=== PATIENT | female | born 1985 | race Two or more races ===

== ENCOUNTER 2017-10-10 19:02 | Emergency (ER) | payer OTHER | END 2017-10-10 20:05 | disposition home or self-care (01) | LOC: ER 19:02 | DX: J02.9 Acute pharyngitis, unspecified (principal); H92.09 Otalgia, unspecified ear | CPT/HCPCS: 99283 ==

== ENCOUNTER 2018-02-02 22:31 | Emergency (ER) | payer OTHER ==
[~2018-02-02] VITALS: Ht 157.5 cm; Wt 104.3 kg
[~2018-02-02 22:31] MED LIST: AMOX1TAB61 PO; PRED-220 PO
[2018-02-02 22:55] VITALS: BP 155/97
--- NOTE | 2018-02-03 00:58 | PHYS DOC ---
Past Medical History Past Medical History: No Pertinent History Past Surgical History: Additional Past Surgical Histo: C-SECTIONS Alcohol Use: Rarely Drug Use: None Adult General Chief Complaint Chief Complaint: LOWER EXT PAIN HPI HPI 32-year-old female presents to ER for complaints of left lower extremity pain and swelling. Patient reports on she has history of Aragon's palsy and on Monday had episode which caused her to fall forward striking her left knee on a tree stump. Patient reports she had some discomfort at that time the pain was tolerable so she was not evaluated. Patient reports yesterday she drove back from [place] on and woke Monday morning with increased pain and tingling in left lower extremity along with swelling. Patient reports she feels she has more bruising extending down her left lower leg into her ankle. Patient denies any ankle or foot injury. Patient denies striking her head or having any head, neck, or back pain. Patient currently rates pain at 6 out of 10 denying any eazk-imf-oomowed medications. Patient denies being on control, being daily smoker, or having past history of blood clots or PEs. LMP ended 01/20/18. Patient was offered dose of ibuprofen during an initial exam- she is preferring no medications. Review of Systems Review of Systems Constitutional: Denies fever or chills [] Respiratory: Denies cough or shortness of breath [] Cardiovascular: Denies chest pain or palpitations GI: Denies abdominal pain, nausea, vomiting, bloody stools or diarrhea [] : Denies dysuria or hematuria [] Musculoskeletal: Denies back pain or joint pain [] Integument: Denies rash or skin lesions. Reports bruising to left lower leg standing in to left ankle-swelling to the left lower extremity Neurologic: Denies headache, focal weakness or sensory changes. Reports numbness and tingling in left lower extremity. Denies inability to ambulate All other systems were reviewed and found to be within normal limits, except as documented in this note. Allergies Allergies Allergies Coded Allergies Type Severity Reaction Last Updated Verified No Known Drug Allergies 10/10/17 No Physical Exam Physical Exam Constitutional: Well developed, well nourished, no acute distress, non-toxic appearance. [] HENT: Normocephalic, atraumatic, bilateral ears normal, oropharynx moist, nose normal. [] Eyes: PERRLA, conjunctiva normal, no discharge. [] Neck: Normal range of motion, no tenderness, supple, no stridor. [] Cardiovascular:Heart rate regular rhythm, no murmur [] Lungs & Thorax: Bilateral breath sounds clear to auscultation area respirations equal and nonlabored Abdomen: Bowel sounds normal, soft, no tenderness Skin: Warm, dry, no erythema, no rash. [] Back: No tenderness, no CVA tenderness. [] Extremities: Pelvis stable and nontender. Right lower extremity assessment normal limits neuro and vascular intact. Lt anterior distal thigh tenderness on palp. just above lt patella. Lt patella is nontender with no palp. deformity. Abrasion just distal to patella- no erythema/drainage. Pt has swelling from knee to lt foot with ecchymosis extending from lt lower mid chaparro to lt ankle with more ecchymosis medial malleolus. Pt is able to perform ROM of lt LE joints but does report pain with ROM of lt knee or palp. of lt chaparro. Neurologic: Alert and oriented X 3, normal motor function, normal sensory function, no focal deficits noted.Steady gait Psychologic: Affect normal, judgement normal, mood normal. [] Current Patient Data Vital Signs Vital Signs Date Time Temp Pulse Resp B/P (MAP) Pulse Ox O2 Delivery O2 Flow Rate FiO2 02/02/18 22:55 98.4 98 16 155/97 (116) 98 Room Air 98.4 EKG EKG [] Radiology/Procedures Radiology/Procedures INDICATION: Left leg injury with swelling and bruising COMPARISON: None. TECHNIQUE: Grayscale, color and doppler ultrasound images were obtained of the left lower extremity venous vasculature. LEFT: No thrombus identified in the common femoral vein, femoral vein, popliteal vein or visualized calf veins. Edema of soft tissues IMPRESSION: 1. No thrombus identified in deep venous system of the left lower extremity. Electronically signed by: Shaun Rodriguez MD (02/03/2018 1:02 AM) [facility] DICTATED and SIGNED BY: SHAUN RODRIGUEZ MD DATE: 02/03/18 010 Course & Med Decision Making Course & Med Decision Making Pertinent Imaging studies reviewed. (See chart for details) 0104: Discussed pt's case with Dr. Baer who viewed pt's xrays with no acute findings for fx/dislocation. Discussed neg. US of lt LE. Will wrap ankle/lt lower leg with keyona wrap for drive home. Discussed taking wrap off and elevating lt LE. Discussed use of OTC tylenol and/or Ibuprofen for pain. Education provided on s&s to return to ER for and discharge instructions were discussed. Pt again offered pain med and preferred no med. Pt remains neuro/vascular intact in bilat. LEs with no increase in swelling. She has had steady unassisted gait while in ER. Dragon Disclaimer Dragon Disclaimer This electronic medical record was generated, in whole or in part, using a voice recognition dictation system. Departure Departure Impression: Primary Impression: Leg injury Additional Impressions: Traumatic ecchymosis of left lower leg Abrasion Swelling of left lower extremity Disposition: HOME, SELF-CARE Condition: STABLE Referrals: NO PCP (PCP) MORENO KATHLEEN MD If symptoms persist or worsen follow-up with orthopedic doctor Patient Instructions: Abrasions, Contusion, Edema, Knee Pain Additional Instructions: You can wear keyona wrap to help with swelling in left lower extremity- take the wrap off several times a day to allow circulation and monitoring of skin. Ibuprofen and/or tylenol as needed for pain as directed on container. Problem Qualifiers CARLY CALDERON APRN Feb 03, 2018 00:58
--- NOTE | 2018-02-03 01:05 | RAD ---
INDICATION: Left leg injury with swelling and bruising COMPARISON: None. TECHNIQUE: Grayscale, color and doppler ultrasound images were obtained of the left lower extremity venous vasculature. LEFT: No thrombus identified in the common femoral vein, femoral vein, popliteal vein or visualized calf veins. Edema of soft tissues IMPRESSION: 1. No thrombus identified in deep venous system of the left lower extremity. Electronically signed by: Arnulfo Persaud MD (02/03/2018 1:02 AM) [facility]
--- NOTE | 2018-02-03 07:40 | RAD ---
EXAM: Left tibia and fibula, 2 views; left knee, 3 views. HISTORY: Pain. COMPARISON: None. FINDINGS: Frontal and lateral views of the left tibia and fibula and frontal, lateral and oblique views of the left knee are obtained. There is no acute fracture, dislocation or subluxation. There is a small osseous excrescence along the inferior medial malleolus, likely degenerative or the sequela of remote injury. There is a small plantar spur. There is suspected medial ankle soft tissue swelling. There is no knee effusion. IMPRESSION: No acute osseous finding. Electronically signed by: Faith Fitch MD (02/03/2018 7:37 AM) [facility]
== END 2018-02-03 01:29 | disposition home or self-care (01) ==
LOC: ER 22:31
DX: S80.12XA Contusion of left lower leg, initial encounter (principal); W18.09XA Striking against other object with subsequent fall, initial encounter; Y93.89 Activity, other specified; Y92.89 Other specified places as the place of occurrence of the external cause; Y99.8 Other external cause status
CPT/HCPCS: 73562; 73590; 93971; 99284-25

== ENCOUNTER 2018-11-18 20:26 | Emergency (ER) | payer MEDICAID, OTHER ==
[~2018-11-18] VITALS: Ht 157.5 cm; Wt 104.3 kg
[2018-11-18 20:41] LABS: BILIRUBIN,URINE SMALL (NEG); CLARITY,URINE CLOUDY; COLOR,URINE AMBER; NITRITE,URINE NEGATIVE (NEG); PROTEIN,URINE 100 mg/dL (NEG-TRACE); UROBILINOGEN,URINE 0.2 mg/dL (0.2 mg/dL)
--- NOTE | 2018-11-18 20:44 | PHYS DOC ---
Past Medical History Past Medical History: No Pertinent History Past Surgical History: Additional Past Surgical Histo: C-SECTIONS Alcohol Use: Rarely Drug Use: None Adult General Chief Complaint Chief Complaint: ABDOMINAL PAIN HPI HPI Patient is a 33 year old female with no significant medical history who presents to the ED today complaining of a sharp intermittent bilateral upper abd ominal pain that began yesterday with nausea and vomiting. Patient denies anything exacerbating or relieving the pain. Denies any diarrhea. Review of Systems Review of Systems Constitutional: Denies fever or chills [] Eyes: Denies change in visual acuity, redness, or eye pain [] HENT: Denies nasal congestion or sore throat [] Respiratory: Denies cough or shortness of breath [] Cardiovascular: No additional information not addressed in HPI [] GI: Reports bilateral upper abdominal pain with nausea and vomiting, denies bloody stools or diarrhea [] : Denies dysuria or hematuria [] Musculoskeletal: Denies back pain or joint pain [] Integument: Denies rash or skin lesions [] Neurologic: Denies headache, focal weakness or sensory changes [] All other systems were reviewed and found to be within normal limits, except as documented in this note. Current Medications Current Medications Current Medications Medications (Trade) Dose Ordered Sig/Wilder Start Time Stop Time Status Last Admin Dose Admin Ceftriaxone Sodium (Rocephin) 1 gm 1X ONCE 11/18/18 22:30 11/18/18 22:31 Famotidine (Pepcid Vial) 20 mg 1X ONCE 11/18/18 20:45 11/18/18 20:46 DC 11/18/18 20:59 20 MG Fentanyl Citrate (Fentanyl 2ml Vial) 50 mcg 1X ONCE 11/18/18 21:30 11/18/18 21:31 DC 11/18/18 21:35 50 MCG Ketorolac Tromethamine (Toradol 30mg Vial) 30 mg 1X ONCE 11/18/18 22:30 11/18/18 22:31 Ondansetron HCl (Zofran) 4 mg 1X ONCE 11/18/18 20:45 11/18/18 20:46 DC 11/18/18 20:56 4 MG Potassium Chloride (Klor-Con) 40 meq 1X ONCE 11/18/18 22:00 11/18/18 22:01 DC 11/18/18 21:42 40 MEQ Sodium Chloride 1,000 ml @ 1,000 mls/hr 1X ONCE 11/18/18 20:45 11/18/18 21:44 DC 11/18/18 21:02 1,000 MLS/HR Allergies Allergies Allergies Coded Allergies Type Severity Reaction Last Updated Verified No Known Drug Allergies 10/10/17 No Physical Exam Physical Exam Constitutional: Well developed, well nourished, no acute distress, non-toxic appearance. [] HENT: Normocephalic, atraumatic, bilateral external ears normal, oropharynx moist, no oral exudates, nose normal. [] Eyes: PERRLA, EOMI, conjunctiva normal, no discharge. [] Neck: Normal range of motion, no tenderness, supple, no stridor. [] Cardiovascular:Heart rate regular rhythm, no murmur [] Lungs & Thorax: Bilateral breath sounds clear to auscultation [] Abdomen: Bowel sounds normal, soft, diffuse tenderness to bilateral upper abdomen, no point tenderness the right upper or right lower quadrant, negative Alejandre sign, negative psoas sign, negative Rovsing sign, no guarding, no rebound pain or tenderness no masses, no pulsatile masses. [] Skin: Warm, dry, no erythema, no rash. [] Back: No tenderness, no CVA tenderness. [] Extremities: No tenderness, no cyanosis, no clubbing, ROM intact, no edema. [] Neurologic: Alert and oriented X 3, normal motor function, normal sensory function, no focal deficits noted. [] Psychologic: Affect normal, judgement normal, mood normal. [] Current Patient Data Vital Signs Vital Signs Date Time Temp Pulse Resp B/P (MAP) Pulse Ox O2 Delivery O2 Flow Rate FiO2 11/18/18 21:35 20 Room Air 11/18/18 20:40 99.1 110 152/87 (108) 96 99.1 Lab Values Laboratory Tests Test 11/18/18 20:33 11/18/18 20:37 11/18/18 20:45 Urine Collection Type Unknown Urine Color [place] Urine Clarity Cloudy Urine pH 5.0 Urine Specific [place] >=1.030 Urine Protein 100 mg/dL (NEG-TRACE) Urine Glucose (UA) 500 mg/dL (NEG) Urine Ketones (Stick) 15 mg/dL (NEG) Urine Blood Large (NEG) Urine Nitrite Negative (NEG) Urine Bilirubin Small (NEG) Urine Urobilinogen Dipstick 0.2 mg/dL (0.2 mg/dL) Urine Leukocyte Esterase Small (NEG) Urine RBC Tntc /HPF (0-2) Urine WBC 11-20 /HPF (0-4) Urine Squamous Epithelial Cells Mod /LPF Urine Bacteria Few /HPF (0-FEW) Urine Mucus Marked /LPF POC Urine HCG, Qualitative Hcg negative (Negative) White Blood Count 15.6 x10^3/uL (4.0-11.0) H Red Blood Count 4.82 x10^6/uL (3.50-5.40) Hemoglobin 13.8 g/dL (12.0-15.5) Hematocrit 40.3 % (36.0-47.0) Mean Corpuscular Volume 84 fL (79-100) Mean Corpuscular Hemoglobin 29 pg (25-35) Mean Corpuscular Hemoglobin Concent 34 g/dL (31-37) Red Cell Distribution Width 14.1 % (11.5-14.5) Platelet Count 203 x10^3/uL (140-400) Neutrophils (%) (Auto) 84 % (31-73) H Lymphocytes (%) (Auto) 11 % (24-48) L Monocytes (%) (Auto) 5 % (0-9) Eosinophils (%) (Auto) 0 % (0-3) Basophils (%) (Auto) 0 % (0-3) Neutrophils # (Auto) 13.1 x10^3uL (1.8-7.7) H Lymphocytes # (Auto) 1.7 x10^3/uL (1.0-4.8) Monocytes # (Auto) 0.7 x10^3/uL (0.0-1.1) Eosinophils # (Auto) 0.0 x10^3/uL (0.0-0.7) Basophils # (Auto) 0.1 x10^3/uL (0.0-0.2) Segmented Neutrophils % 53 % (35-66) Band Neutrophils % 34 % (0-9) H Lymphocytes % 8 % (24-48) L Monocytes % 3 % (0-10) Basophils % 1 % (0-3) Metamyelocytes % 1 % (0-0) H Platelet Estimate Adequate (ADEQUATE) Sodium Level 133 mmol/L (136-145) L Potassium Level 3.2 mmol/L (3.5-5.1) L Chloride Level 95 mmol/L (98-107) L Carbon Dioxide Level 24 mmol/L (21-32) Anion Gap 14 (6-14) Blood Urea Nitrogen 9 mg/dL (7-20) Creatinine 0.9 mg/dL (0.6-1.0) Estimated GFR (Cockcroft-Gault) 71.7 BUN/Creatinine Ratio 10 (6-20) Glucose Level 238 mg/dL (70-99) H Calcium Level 9.0 mg/dL (8.5-10.1) Total Bilirubin 0.9 mg/dL (0.2-1.0) Aspartate Amino Transferase (AST) 29 U/L (15-37) Alanine Aminotransferase (ALT) 45 U/L (14-59) Alkaline Phosphatase 104 U/L (46-116) Total Protein 7.9 g/dL (6.4-8.2) Albumin 3.8 g/dL (3.4-5.0) Albumin/Globulin Ratio 0.9 (1.0-1.7) L Lipase 94 U/L (73-393) Urine Opiates Screen Neg (NEG) Urine Methadone Screen Neg (NEG) Urine Barbiturates Neg (NEG) Urine Phencyclidine Screen Neg (NEG) Urine Amphetamine/Methamphetamine Neg (NEG) Urine Benzodiazepines Screen Neg (NEG) Urine Cocaine Screen Neg (NEG) Urine Cannabinoids Screen Neg (NEG) Ethyl Alcohol Level < 10 mg/dL (0-10) Urine Ethyl Alcohol Neg (NEG) Laboratory Tests 11/18/18 20:45 Laboratory Tests 11/18/18 20:45 EKG EKG [] Radiology/Procedures Radiology/Procedures []PROCEDURE: ABDOMEN COMPLETE EXAM: Abdomen sonogram. HISTORY: Pain. TECHNIQUE: Sonographic imaging of the abdomen was performed. COMPARISON: None. FINDINGS: The liver is enlarged. There is hepatic steatosis. No focal hepatic lesion is seen. There is cholelithiasis. The common bile duct is normal in caliber. The gallbladder wall is normal in thickness. The kidneys are unremarkable. The spleen is normal in size. The pancreas is obscured due to bowel gas. The aorta and inferior vena cava are unremarkable. IMPRESSION: 1. Hepatomegaly and hepatic steatosis. 2. Cholelithiasis. 3. Obscured pancreas due to bowel gas. Electronically signed by: Faith Soto MD (11/18/2018 9:27 PM) [facility] DICTATED and SIGNED BY: FAITH SOTO MD DATE: 11/18/182126 Course & Med Decision Making Course & Med Decision Making Pertinent Labs and Imaging studies reviewed. (See chart for details) This is a 33-year-old female patient presented to the ED today with complaints of bilateral upper abdominal pain with nausea vomiting that began yesterday. Urine analysis is noted for UTI, WBC 15.6 with a left shift and bandemia. CMP with potassium of 3.2, patient was given oral potassium replacement, sodium 132, patient was given IV fluids, blood glucose 238, anion gap is normal, patient has no history of diabetes-she states she's been unable to eat if this is a fasting glucose she has DMII. Patient instructed to follow-up with the primary care doctor for diabetes. We talked about diet and exercise. Abdominal ultrasound was noted for cholelithiasis, no cholecystitis. Patient was given Rocephin IV for UTI in the ED. I offered admission, she declined. She states her pain is currently well controlled. She was discharged with Cephalexin. She'll follow-up with Gen. surgery as well as primary care doctor. Dragon Disclaimer Dragon Disclaimer This electronic medical record was generated, in whole or in part, using a voice recognition dictation system. Departure Departure Impression: Primary Impression: Cholelithiasis Additional Impressions: Urinary tract infection Nausea and vomiting Disposition: 01 HOME, SELF-CARE Condition: STABLE Referrals: NO PCP (PCP) RAISA SANCHEZ MD follow up in 1 week Patient Instructions: Cholelithiasis, [id number], Urinary Tract Infection Additional Instructions: You were evaluated in the emergency room and noted to have gallstones, you also have urinary tract infection. Please take the prescribed medications as ordered, ensure you complete your antibiotics. Take the prescribed pain medicine and nausea medicine as needed. Your blood glucose was high in the emergency room. We recommend you follow-up with the primary care doctor from the list provided you likely have diabetes. Try to exercise, lose weight, avoid eating fatty greasy foods, avoid foods with sugars, and added salts. Scripts Hydrocodone/Apap 5-325 (NORCO 5-325 TABLET) 1 Each Tablet 1 TAB PO Q6HRS, #20 TAB Prov: MUTUNGA,ASHLYN KELLIE 11/18/18 Cephalexin (CEPHALEXIN) 500 Mg Tablet 1 TAB PO BID, #14 TAB Prov: ASHLYN CHAPARRO KELLIE 11/18/18 Ondansetron Hcl (ZOFRAN) 4 Mg Tablet 1 TAB PO Q6HRS, #20 TAB Prov: ASHLYN CHAPARRO [employer] 11/18/18 Problem Qualifiers Primary Impression: Cholelithiasis Cholelithiasis location: gallbladder Cholecystitis presence: without cholecystitis Biliary obstruction: without biliary obstruction Qualified Codes: K80.20 - Calculus of gallbladder without cholecystitis without obstruction Additional Impressions: Urinary tract infection Urinary tract infection type: site unspecified Hematuria presence: without hematuria Qualified Codes: N39.0 - Urinary tract infection, site not specified Nausea and vomiting Vomiting type: unspecified Vomiting Intractability: unspecified Qualified Codes: R11.2 - Nausea with vomiting, unspecified ASHLYN CHAPARRO KELLIE Nov 18, 2018 20:44
[2018-11-18] MEDS ORDERED: IV NORMAL SALINE 1000ML BAG 1,000 ML IV ONE (20:45)
[2018-11-18] MEDS ORDERED: FAMOTIDINE 20 MG/2 ML VIAL IVP ONE (20:45)
[2018-11-18] MEDS ORDERED: ONDANSETRON PF 4 MG/2 ML VIAL. IV ONE (20:45)
[2018-11-18 20:48] LABS: RBC,URINE TNTC /HPF (0-2); SQUAMOUS EPITHELIAL CELL,UR MOD /LPF
[2018-11-18 20:49] LABS: BACTERIA,URINE FEW /HPF (0-FEW)
[2018-11-18 20:58] LABS: BASO # 0.1 x10^3/uL (0.0-0.2); BASO % 0 % (0-3); EOS % 0 % (0-3); HEMATOCRIT 40.3 % (36.0-47.0); HEMOGLOBIN 13.8 g/dL (12.0-15.5); LYMPH # 1.7 x10^3/uL (1.0-4.8); LYMPH % 11 % (24-48); MEAN CORPUSCULAR HEMOGLOBIN 29 pg (25-35); MEAN CORPUSCULAR HGB CONC 34 g/dL (31-37); MEAN CORPUSCULAR VOLUME 84 fL (79-100); MONO # 0.7 x10^3/uL (0.0-1.1); MONO % 5 % (0-9); NEUT # 13.1 x10^3uL (1.8-7.7); NEUT % 84 % (31-73); PLATELET COUNT 203 x10^3/uL (140-400); RED BLOOD COUNT 4.82 x10^6/uL (3.50-5.40); RED CELL DISTRIBUTION WIDTH 14.1 % (11.5-14.5); WHITE BLOOD COUNT 15.6 x10^3/uL (4.0-11.0)
[2018-11-18 21:03] LABS: BARBITURATES NEG (NEG); BENZODIAZEPINES NEG (NEG); CANNABINOIDS NEG (NEG); COCAINE NEG (NEG); METHADONE NEG (NEG); OPIATES NEG (NEG); PHENCYCLIDINE NEG (NEG)
[2018-11-18 21:04] LABS: AMPHETAMINE/METHAMPHETAMINE NEG (NEG)
[2018-11-18 21:07] LABS: CREATININE 0.9 mg/dL (0.6-1.0); GFR 71.7; POTASSIUM 3.2 mmol/L (3.5-5.1)
[2018-11-18 21:12] LABS: ALBUMIN 3.8 g/dL (3.4-5.0); ALBUMIN/GLOBULIN RATIO 0.9 (1.0-1.7); TOTAL BILIRUBIN 0.9 mg/dL (0.2-1.0); TOTAL PROTEIN 7.9 g/dL (6.4-8.2)
[2018-11-18 21:16] LABS: % BANDS 34 % (0-9); % BASOS 1 % (0-3); % LYMPHS 8 % (24-48); % METAS 1 % (0-0); % MONOS 3 % (0-10); % SEGS 53 % (35-66); PLT ESTIMATE ADEQUATE (ADEQUATE)
--- NOTE | 2018-11-18 21:29 | RAD ---
EXAM: Abdomen sonogram. HISTORY: Pain. TECHNIQUE: Sonographic imaging of the abdomen was performed. COMPARISON: None. FINDINGS: The liver is enlarged. There is hepatic steatosis. No focal hepatic lesion is seen. There is cholelithiasis. The common bile duct is normal in caliber. The gallbladder wall is normal in thickness. The kidneys are unremarkable. The spleen is normal in size. The pancreas is obscured due to bowel gas. The aorta and inferior vena cava are unremarkable. IMPRESSION: 1. Hepatomegaly and hepatic steatosis. 2. Cholelithiasis. 3. Obscured pancreas due to bowel gas. Electronically signed by: Faith Fitch MD (11/18/2018 9:27 PM) [facility]
[2018-11-18] MEDS ORDERED: fentaNYL PF VIAL 100 MCG/2 ML VIAL IV ONE (21:30)
[2018-11-18] MEDS ORDERED: POTASSIUM CHLORIDE 20 MEQ TABLET.ER. PO ONE (22:00)
[2018-11-18] MEDS ORDERED: HYDR-3164 PO (22:14)
[2018-11-18] MEDS ORDERED: ONDA4TAB7 PO (22:14)
[2018-11-18] MEDS ORDERED: CEPH500T PO (22:14)
[2018-11-18] MEDS ORDERED: cefTRIAXone IV Push 1 GM VIAL. IVP ONE (22:30)
[2018-11-18] MEDS ORDERED: KETOROLAC 30 MG/ML VIAL. IV ONE (22:30)
[2018-11-18 22:36] VITALS: BP 139/77
== END 2018-11-18 23:13 | disposition home or self-care (01) ==
LOC: ER 20:26
DX: K80.20 Calculus of gallbladder without cholecystitis without obstruction (principal); N39.0 Urinary tract infection, site not specified; R11.2 Nausea with vomiting, unspecified
CPT/HCPCS: 36415; 76700; 80053; 80307; 81001; 81025; 83690; 85007; 85025; 96361; 96374; 96375; 99285; G0480; J0696; J1885; J2405; J3010; J3490; J7030

== ENCOUNTER 2019-03-12 07:01 | Emergency (ER) | payer MEDICAID, OTHER ==
[~2019-03-12] VITALS: Ht 157.5 cm; Wt 99.8 kg
[~2019-03-12 07:01] MED LIST changes: +CEPH500T PO; +HYDR-3164 PO; +ONDA4TAB7 PO
[2019-03-12] MEDS ORDERED: IV NORMAL SALINE 1000ML BAG 1,000 ML IV SCH (07:21)
--- NOTE | 2019-03-12 07:26 | PHYS DOC ---
Past Medical History Past Medical History: Diabetes-Type II, Hypertension Past Surgical History: Additional Past Surgical Histo: C-SECTIONS Alcohol Use: Rarely Drug Use: None Adult General Chief Complaint Chief Complaint: ABDOMINAL PAIN HPI HPI Patient is a 33 year old female who presents with complaining of abdominal pain. Patient complaining of sudden onset of epigastric sharp pain with radiation to suprapubic area since yesterday 11 AM as a constant pain that getting better and worse. Patient states she gets episodes of sharp pain that last about 30 minutes associated with anorexia and nausea without vomiting. Patient denies fever and chills, diarrhea and constipation, vaginal bleeding or discharge, history of the same pain. Patient complaining of urinary frequency without dysuria. Patient rated her pain H Elizabeth started yesterday and 4 at arrival to ER. Patient does not want pain medication. Review of Systems Review of Systems Constitutional: Denies fever or chills [] Eyes: Denies change in visual acuity, redness, or eye pain [] HENT: Denies nasal congestion or sore throat [] Respiratory: Denies cough or shortness of breath [] Cardiovascular: No additional information not addressed in HPI [] GI: Reports abdominal pain, nausea, denies vomiting, bloody stools or diarrhea [] : Denies dysuria or hematuria [] Musculoskeletal: Denies back pain or joint pain [] Integument: Denies rash or skin lesions [] Neurologic: Denies headache, focal weakness or sensory changes [] Endocrine: Denies polyuria or polydipsia [] All other systems were reviewed and found to be within normal limits, except as documented in this note. Current Medications Current Medications Current Medications Medications (Trade) Dose Ordered Sig/Wilder Start Time Stop Time Status Last Admin Dose Admin Ondansetron HCl (Zofran) 4 mg 1X ONCE 03/12/19 07:30 03/12/19 07:31 DC 03/12/19 07:51 4 MG Sodium Chloride 1,000 ml @ 1,000 mls/hr Q1H 03/12/19 07:21 03/12/19 08:20 DC 03/12/19 07:51 1,000 MLS/HR Allergies Allergies Allergies Coded Allergies Type Severity Reaction Last Updated Verified No Known Drug Allergies 10/10/17 No Physical Exam Physical Exam Constitutional: Well developed, well nourished, mild distress, non-toxic appe arance. [] HENT: Normocephalic, atraumatic. Eyes: PERRLA, EOMI, conjunctiva normal, no discharge. [] Neck: Normal range of motion, no tenderness, supple, no stridor. [] Cardiovascular:Heart rate regular rhythm, no murmur [] Lungs & Thorax: Bilateral breath sounds clear to auscultation [] Abdomen: Bowel sounds normal, soft, no tenderness, no masses, no pulsatile masses. [] Skin: Warm, dry, no erythema, no rash. [] Back: No tenderness, no CVA tenderness. [] Extremities: No tenderness, no cyanosis, no clubbing, ROM intact, no edema. [] Neurologic: Alert and oriented X 3, no focal deficits noted. [] Psychologic: Affect normal, judgement normal, mood normal. [] Current Patient Data Vital Signs Vital Signs Date Time Temp Pulse Resp B/P (MAP) Pulse Ox O2 Delivery O2 Flow Rate FiO2 03/12/19 08:13 72 18 156/90 (112) 97 Room Air 03/12/19 07:08 97.8 97.8 Lab Values Laboratory Tests Test 03/12/19 07:09 03/12/19 07:18 03/12/19 07:25 Urine Collection Type Void Urine Color Yellow Urine Clarity Clear Urine pH 5.0 Urine Specific [place] >=1.030 Urine Protein Negative mg/dL (NEG-TRACE) Urine Glucose (UA) >=1000 mg/dL (NEG) Urine Ketones (Stick) Negative mg/dL (NEG) Urine Blood Trace (NEG) Urine Nitrite Negative (NEG) Urine Bilirubin Negative (NEG) Urine Urobilinogen Dipstick 0.2 mg/dL (0.2 mg/dL) Urine Leukocyte Esterase Negative (NEG) Urine RBC Occ /HPF (0-2) Urine WBC 1-4 /HPF (0-4) Urine Squamous Epithelial Cells Mod /LPF Urine Amorphous Sediment Present /HPF Urine Bacteria Few /HPF (0-FEW) Urine Mucus Mod /LPF POC Urine HCG, Qualitative Hcg negative (Negative) White Blood Count 8.0 x10^3/uL (4.0-11.0) Red Blood Count 4.33 x10^6/uL (3.50-5.40) Hemoglobin 12.4 g/dL (12.0-15.5) Hematocrit 36.8 % (36.0-47.0) Mean Corpuscular Volume 85 fL (79-100) Mean Corpuscular Hemoglobin 29 pg (25-35) Mean Corpuscular Hemoglobin Concent 34 g/dL (31-37) Red Cell Distribution Width 14.1 % (11.5-14.5) Platelet Count 206 x10^3/uL (140-400) Neutrophils (%) (Auto) 64 % (31-73) Lymphocytes (%) (Auto) 28 % (24-48) Monocytes (%) (Auto) 6 % (0-9) Eosinophils (%) (Auto) 2 % (0-3) Basophils (%) (Auto) 0 % (0-3) Neutrophils # (Auto) 5.1 x10^3/uL (1.8-7.7) Lymphocytes # (Auto) 2.2 x10^3/uL (1.0-4.8) Monocytes # (Auto) 0.4 x10^3/uL (0.0-1.1) Eosinophils # (Auto) 0.2 x10^3/uL (0.0-0.7) Basophils # (Auto) 0.0 x10^3/uL (0.0-0.2) Sodium Level 139 mmol/L (136-145) Potassium Level 4.2 mmol/L (3.5-5.1) Chloride Level 104 mmol/L (98-107) Carbon Dioxide Level 24 mmol/L (21-32) Anion Gap 11 (6-14) Blood Urea Nitrogen 12 mg/dL (7-20) Creatinine 0.6 mg/dL (0.6-1.0) Estimated GFR (Cockcroft-Gault) 114.4 BUN/Creatinine Ratio 20 (6-20) Glucose Level 226 mg/dL (70-99) H Calcium Level 9.0 mg/dL (8.5-10.1) Total Bilirubin 0.3 mg/dL (0.2-1.0) Aspartate Amino Transferase (AST) 24 U/L (15-37) Alanine Aminotransferase (ALT) 35 U/L (14-59) Alkaline Phosphatase 67 U/L (46-116) Total Protein 7.6 g/dL (6.4-8.2) Albumin 3.4 g/dL (3.4-5.0) Albumin/Globulin Ratio 0.8 (1.0-1.7) L Lipase 172 U/L (73-393) Laboratory Tests 03/12/19 07:25 Laboratory Tests 03/12/19 07:25 EKG EKG [] Radiology/Procedures Radiology/Procedures [][facility] [address] [place] [address] IMAGING REPORT Signed PATIENT: MEGAN SUTHERLAND ACCOUNT: [id number] : 1985 LOCATION: ER AGE: 33 SEX: F EXAM STATUS: REG ER ORD. PHYSICIAN: MANE COTE MD REASON: Epigastric abdominal pain x 1 day PROCEDURE: CT ABDOMEN PELVIS WO CONTRAST Study: CT abdomen and pelvis without contrast Indication: Epigastric abdominal pain for the past day. Comparison: No prior CT is available for comparison. Technique: Helical CT imaging performed of the abdomen and pelvis without the use of intravenous contrast. Sagittal and coronal reformats were obtained. One or more of the following individualized dose reduction techniques were utilized for this examination: 1. Automated exposure control 2. Adjustment of the mA and/or kV according to patient size 3. Use of iterative reconstruction technique. Findings: The lower lungs and visualized heart are unremarkable. Essentially diffuse low-attenuation of the hepatic parenchyma with areas of more normal density along the gallbladder fossa. No CT findings to suggest acute cholecystitis. The unenhanced appearance of the pancreas and spleen is within normal limits. No hydronephrosis or hydroureter. No nephrolithiasis. The urinary bladder is unremarkable. Within normal limits appearance of the uterus and bilateral adnexa given patient age. Mild colonic diverticulosis without diverticulitis. The appendix is well-visualized and is normal. Nonobstructed small bowel. The stomach is mostly collapsed and without focal abnormality. Normal caliber of the abdominal aorta with trace atherosclerotic calcifications. No free fluid or air. No mesenteric or pelvic adenopathy. Unremarkable body wall soft tissues and musculature. No acute osseous abnormality. Impression: 1. No acute abnormality seen throughout the abdomen or pelvis. 2. Extensive low-attenuation of the hepatic parenchyma most compatible with fatty infiltration as well as seen on the 11/18/[address] findings to suggest acute cholecystitis. No calcified gallstones are seen. If there is ongoing concern, targeted right upper quadrant sonogram could be performed. Electronically signed by: MITCH ABDI MD (03/12/2019 9:00 AM) [facility] DICTATED and SIGNED BY: MITCH ABDI MD DATE: 03/12/19 0900 Course & Med Decision Making Course & Med Decision Making Pertinent Labs and Imaging studies reviewed. (See chart for details) Evaluation of patient in ER showed 33-year-old male patient with complaining of epigastric pain. The patient is a purpuric area since yesterday with nausea. According to EMR patient had diagnosis of cholelithiasis and had eggs and toast yesterday before starting the pain. CT of abdomen and pelvis did not show acute cholecystitis or acute finding in the abdomen. Patient was advised to avoid of it in fact foot and follow-up with on-call surgeon for cholecystectomy. Dragon Disclaimer Dragon Disclaimer This electronic medical record was generated, in whole or in part, using a voice recognition dictation system. Departure Departure Impression: Primary Impression: Recurrent biliary colic Additional Impressions: Cholelithiasis Uncontrolled diabetes mellitus Nausea Fatty liver Morbidly obese Disposition: HOME, SELF-CARE (at 0 925) Condition: IMPROVED Referrals: NO PCP (PCP) TORO SOSA MD Patient Instructions: Biliary Colic, Cholelithiasis, Nausea, Adult Additional Instructions: Drink plenty of liquids Follow-up with your primary care physician in 3-5 days Return to ER if not getting better Follow-up with on-call surgeon in 2 or 3 days Do not eat fatty food Scripts Ondansetron Hcl (ZOFRAN) 4 Mg Tablet 1 TAB PO PRN Q6-8HRS for nausea, #12 TAB Prov: MANE COTE MD 03/12/19 Tramadol Hcl (ULTRAM) 50 Mg Tablet 50 MG PO Q6HRS PRN for PAIN, #14 TAB 0 Refills Prov: MANE COTE MD 03/12/19 Problem Qualifiers Additional Impressions: Cholelithiasis Cholelithiasis location: gallbladder Cholecystitis presence: without cholecystitis Biliary obstruction: without biliary obstruction Qualified Codes: K80.20 - Calculus of gallbladder without cholecystitis without obstruction Uncontrolled diabetes mellitus Diabetes mellitus type: type 2 Glycemic state: with hyperglycemia Qualified Codes: E11.65 - Type 2 diabetes mellitus with hyperglycemia MANE COTE MD Mar 12, 2019 07:26
[2019-03-12] MEDS ORDERED: ONDANSETRON PF 4 MG/2 ML VIAL. IV ONE (07:30)
[2019-03-12 07:35] LABS: BILIRUBIN,URINE NEGATIVE (NEG); CLARITY,URINE CLEAR; COLOR,URINE YELLOW; NITRITE,URINE NEGATIVE (NEG); PROTEIN,URINE NEGATIVE (NEG-TRACE); UROBILINOGEN,URINE 0.2 mg/dL (0.2 mg/dL)
[2019-03-12 07:44] LABS: BASO % 0 % (0-3); EOS # 0.2 x10^3/uL (0.0-0.7); EOS % 2 % (0-3); HEMATOCRIT 36.8 % (36.0-47.0); HEMOGLOBIN 12.4 g/dL (12.0-15.5); LYMPH # 2.2 x10^3/uL (1.0-4.8); LYMPH % 28 % (24-48); MEAN CORPUSCULAR HEMOGLOBIN 29 pg (25-35); MEAN CORPUSCULAR HGB CONC 34 g/dL (31-37); MEAN CORPUSCULAR VOLUME 85 fL (79-100); MONO # 0.4 x10^3/uL (0.0-1.1); MONO % 6 % (0-9); NEUT # 5.1 x10^3/uL (1.8-7.7); NEUT % 64 % (31-73); PLATELET COUNT 206 x10^3/uL (140-400); RED BLOOD COUNT 4.33 x10^6/uL (3.50-5.40); RED CELL DISTRIBUTION WIDTH 14.1 % (11.5-14.5)
[2019-03-12 07:50] LABS: BACTERIA,URINE FEW /HPF (0-FEW); RBC,URINE OCC /HPF (0-2)
[2019-03-12 07:51] LABS: AMORPHOUS SEDIMENT,UR PRESENT /HPF; SQUAMOUS EPITHELIAL CELL,UR MOD /LPF
[2019-03-12 07:52] LABS: CREATININE 0.6 mg/dL (0.6-1.0); GFR 114.4; POTASSIUM 4.2 mmol/L (3.5-5.1)
[2019-03-12 08:02] LABS: ALBUMIN 3.4 g/dL (3.4-5.0); ALBUMIN/GLOBULIN RATIO 0.8 (1.0-1.7); TOTAL BILIRUBIN 0.3 mg/dL (0.2-1.0); TOTAL PROTEIN 7.6 g/dL (6.4-8.2)
[2019-03-12 08:13] VITALS: BP 156/90
--- NOTE | 2019-03-12 09:03 | RAD ---
Study: CT abdomen and pelvis without contrast Indication: Epigastric abdominal pain for the past day. Comparison: No prior CT is available for comparison. Technique: Helical CT imaging performed of the abdomen and pelvis without the use of intravenous contrast. Sagittal and coronal reformats were obtained. One or more of the following individualized dose reduction techniques were utilized for this examination: 1. Automated exposure control 2. Adjustment of the mA and/or kV according to patient size 3. Use of iterative reconstruction technique. Findings: The lower lungs and visualized heart are unremarkable. Essentially diffuse low-attenuation of the hepatic parenchyma with areas of more normal density along the gallbladder fossa. No CT findings to suggest acute cholecystitis. The unenhanced appearance of the pancreas and spleen is within normal limits. No hydronephrosis or hydroureter. No nephrolithiasis. The urinary bladder is unremarkable. Within normal limits appearance of the uterus and bilateral adnexa given patient age. Mild colonic diverticulosis without diverticulitis. The appendix is well-visualized and is normal. Nonobstructed small bowel. The stomach is mostly collapsed and without focal abnormality. Normal caliber of the abdominal aorta with trace atherosclerotic calcifications. No free fluid or air. No mesenteric or pelvic adenopathy. Unremarkable body wall soft tissues and musculature. No acute osseous abnormality. Impression: 1. No acute abnormality seen throughout the abdomen or pelvis. 2. Extensive low-attenuation of the hepatic parenchyma most compatible with fatty infiltration as well as seen on the 11/18/[address] findings to suggest acute cholecystitis. No calcified gallstones are seen. If there is ongoing concern, targeted right upper quadrant sonogram could be performed. Electronically signed by: MITCH ABDI MD (03/12/2019 9:00 AM) [facility]
[2019-03-12] MEDS ORDERED: TRAM-48 PO (09:27)
[2019-03-12] MEDS ORDERED: ONDA4TAB7 PO (09:28)
== END 2019-03-12 09:32 | disposition home or self-care (01) ==
LOC: ER 07:01
DX: K80.70 Calculus of gallbladder and bile duct without cholecystitis without obstruction (principal); E11.65 Type 2 diabetes mellitus with hyperglycemia; K76.0 Fatty (change of) liver, not elsewhere classified; E66.01 Morbid (severe) obesity due to excess calories; Z68.41 Body mass index [BMI] 40.0-44.9, adult; I10 Essential (primary) hypertension; E11.9 Type 2 diabetes mellitus without complications
CPT/HCPCS: 36415; 74176; 80053; 81001; 81025; 83690; 85025; 96361; 96374; 99285; J2405; J7030

== ENCOUNTER 2020-01-09 19:37 | Emergency (ER) | payer OTHER ==
[2019-07-16 13:10] VITALS: BP 194/114
[~2020-01-09 19:37] MED LIST changes: +ALBU2.5V8 IH; +TRAM-48 PO
== END 2020-01-09 20:41 | disposition left against medical advice (07) ==
LOC: ER 19:37
DX: Z03.818 Encounter for observation for suspected exposure to other biological agents ruled out (principal); R05 Cough; R50.9 Fever, unspecified; R19.7 Diarrhea, unspecified; Z53.21 Procedure and treatment not carried out due to patient leaving prior to being seen by health care provider

== ENCOUNTER 2020-05-27 15:59 | Emergency (ER) | payer OTHER ==
[~2020-05-27] VITALS: Ht 165.1 cm; Wt 90.1 kg
[2020-05-27 19:31] VITALS: BP 163/82
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
[2020-05-27] MEDS ORDERED: IBUP-1007 PO (21:38)
== END 2020-05-27 21:52 | disposition home or self-care (01) ==
LOC: EEVIPCON 15:59 → ER 15:59
DX: S50.11XA Contusion of right forearm, initial encounter (principal); E11.9 Type 2 diabetes mellitus without complications; I10 Essential (primary) hypertension; Y08.89XA Assault by other specified means, initial encounter; Y93.89 Activity, other specified; Y92.89 Other specified places as the place of occurrence of the external cause; Y99.8 Other external cause status
CPT/HCPCS: 71111; 73090; 81025; 99284

== ENCOUNTER 2020-12-14 11:30 | Emergency (ER) | payer OTHER ==
[~2020-12-14] VITALS: Ht 157.5 cm; Wt 90.9 kg
[~2020-12-14 11:30] MED LIST changes: +IBUP-1007 PO
[2020-12-14] MEDS ORDERED: IV NORMAL SALINE 1000ML BAG 1,000 ML IV ONE (13:00)
[2020-12-14] MEDS ORDERED: ONDANSETRON PF 4 MG/2 ML VIAL. IVP ONE (13:00)
[2020-12-14] MEDS ORDERED: fentaNYL PF VIAL 100 MCG/2 ML VIAL IVP ONE (13:00)
[2020-12-14 13:10] LABS: BASO # 0.1 x10^3/uL (0.0-0.2); BASO % 1 % (0-3); EOS # 0.2 x10^3/uL (0.0-0.7); EOS % 2 % (0-3); HEMATOCRIT 38.7 % (36.0-47.0); HEMOGLOBIN 13.4 g/dL (12.0-15.5); LYMPH # 1.8 x10^3/uL (1.0-4.8); LYMPH % 18 % (24-48); MEAN CORPUSCULAR HEMOGLOBIN 29 pg (25-35); MEAN CORPUSCULAR HGB CONC 35 g/dL (31-37); MEAN CORPUSCULAR VOLUME 84 fL (79-100); MONO # 0.5 x10^3/uL (0.0-1.1); MONO % 5 % (0-9); NEUT # 7.5 x10^3/uL (1.8-7.7); NEUT % 75 % (31-73); PLATELET COUNT 183 x10^3/uL (140-400); RED BLOOD COUNT 4.64 x10^6/uL (3.50-5.40); RED CELL DISTRIBUTION WIDTH 13.8 % (11.5-14.5)
[2020-12-14 13:15] LABS: BILIRUBIN,URINE NEGATIVE (NEG); CLARITY,URINE CLEAR; COLOR,URINE YELLOW; NITRITE,URINE POSITIVE (NEG); PH,URINE 5.5 (<5.0-8.0); PROTEIN,URINE NEGATIVE (NEG-TRACE); UROBILINOGEN,URINE 0.2 mg/dL (0.2 mg/dL)
[2020-12-14 13:20] LABS: CALCIUM 8.3 mg/dL (8.5-10.1); CREATININE 0.6 mg/dL (0.6-1.0); GFR 113.1; POTASSIUM 3.5 mmol/L (3.5-5.1)
[2020-12-14 13:23] LABS: BACTERIA,URINE MANY /HPF (0-FEW); RBC,URINE 0 /HPF (0-2)
[2020-12-14 13:26] LABS: ALBUMIN 3.4 g/dL (3.4-5.0); ALBUMIN/GLOBULIN RATIO 0.9 (1.0-1.7); TOTAL BILIRUBIN 0.5 mg/dL (0.2-1.0); TOTAL PROTEIN 7.4 g/dL (6.4-8.2)
[2020-12-14] MEDS ORDERED: CONTRAST GIVEN. MC PRN (14:15)
[2020-12-14] MEDS ORDERED: IOHEXOL 300 MG/ML 100ML VIAL. IV ONE (14:30)
--- NOTE | 2020-12-14 14:37 | RAD ---
CT ABDOMEN+PELVIS W History: Reason: LLQ pain / Spl. Instructions: IV omni 300 75 mls / History: Technique: After the administration of intravenous contrast, CT imaging was performed of the abdomen and pelvis. Multiplanar images are reviewed. Exposure: One or more of the following individualized dose reduction techniques were utilized for thi s examination: 1. Automated exposure control 2. Adjustment of the mA and/or kV according to patient size 3. Use of iterative reconstruction technique. Comparison: March 12, 2019 Findings: Lower chest: No consolidation or pleural effusion. Abdomen and pelvis: Hepatic steatosis. Focal fatty sparing along the gallbladder fossa. The spleen, a drenal glands, and pancreas are unremarkable. Cholelithiasis. Small bilateral renal hypodensities, li lc cysts. No hydronephrosis. No renal calculus. Sigmoid colonic wall thickening with inflamed diverticula and adjacent inflammatory changes. Addition al colonic diverticulosis. No perforation. No abscess. Normal appendix. No evidence of bowel obstruct ion. No pathologic lymphadenopathy. No ascites. Left ovarian dominant follicle measures 2.5 cm. Bones: No pathologic osseous lesions. Impression: 1. Acute sigmoid diverticulitis. No perforation or abscess. 2. Cholelithiasis. 3. Hepatic steatosis. Electronically signed by: Servando Gutierrez DO (12/14/2020 2:34 PM) [id number]
[2020-12-14] MEDS ORDERED: CIPROFLOXACIN HCL 250 MG TABLET. PO ONE (14:45)
[2020-12-14] MEDS ORDERED: metroNIDAZOLE 500 MG TABLET PO ONE (14:45)
[2020-12-14 14:54] VITALS: BP 166/91
[2020-12-14] MEDS ORDERED: METR500T PO (15:00)
[2020-12-14] MEDS ORDERED: CIPR500T94 PO (15:00)
--- NOTE | 2020-12-14 15:01 | PHYS DOC ---
Past Medical History Past Medical History: Diabetes-Type II, Hypertension (KRYSTAASHLYN Jonnathan [employer]) Past Surgical History: Additional Past Surgical Histo: C-SECTIONS, TUBAL LIGATION (ASHLYN CHAPARRO Jonnathan [employer]) Smoking Status: Never Smoker Alcohol Use: Rarely Drug Use: None (ASHLYN HCAPARRO Jonnathan [employer]) General Adult EDM: Chief Complaint: ABDOMINAL PAIN HPI: HPI: Patient is a 35 year old female with a history of diabetes type 2, hypertension, who presents to the ED today complaining of a sharp 7 out of 10 left lower quadrant abdominal pain, symptoms began 3 days ago. Patient denies anything specifically exacerbating or relieving the symptoms. Denies any nausea or vomiting. States the symptoms are intermittent. (ASHLYN CHAPARRO Jonnathan [employer]) Review of Systems: Review of Systems: Constitutional: Denies fever or chills. [] Eyes: Denies change in visual acuity. [] HENT: Denies nasal congestion or sore throat. [] Respiratory: Denies cough or shortness of breath. [] Cardiovascular: Denies chest pain or edema. [] GI: Reports left lower quadrant abdominal pain nausea, vomiting, bloody stools or diarrhea. [] : Denies dysuria. [] Musculoskeletal: Denies back pain or joint pain. [] Integument: Denies rash. [] Neurologic: Denies headache, focal weakness or sensory changes. [] Psychiatric: Denies depression or anxiety. [] (MARLYNSHONASHLYN Francis [employer]) Heart Score: C/O Chest Pain: N/A Risk Factors: Risk Factors: DM, Current or recent (<one month) smoker, HTN, HLP, family history of CAD, obesity. Risk Scores: Score 0 - 3: 2.5% MACE over next 6 weeks - Discharge Home Score 4 - 6: 20.3% MACE over next 6 weeks - Admit for Clinical Observation Score 7 - 10: 72.7% MACE over next 6 weeks - Early Invasive Strategies (ASHLYN CHAPARRO [employer]) Current Medications: Current Medications Medications (Trade) Dose Ordered Sig/Wilder Start Time Stop Time Status Last Admin Dose Admin Ciprofloxacin (Cipro) 500 mg 1X ONCE 12/14/20 14:45 12/14/20 14:46 DC 12/14/20 14:45 500 MG Fentanyl Citrate (Fentanyl 2ml Vial) 50 mcg 1X ONCE 12/14/20 13:00 12/14/20 13:01 DC 12/14/20 13:13 50 MCG Info (CONTRAST GIVEN -- Rx MONITORING) 1 each PRN DAILY PRN 12/14/20 14:15 12/16/20 14:14 Iohexol (Omnipaque 300 Mg/ml) 75 ml 1X ONCE 12/14/20 14:30 12/14/20 14:31 DC Metronidazole (Flagyl) 500 mg 1X ONCE 12/14/20 14:45 12/14/20 14:46 DC 12/14/20 14:45 500 MG Ondansetron HCl (Zofran) 4 mg 1X ONCE 12/14/20 13:00 12/14/20 13:01 DC 12/14/20 13:12 4 MG Sodium Chloride 1,000 ml @ 1,000 mls/hr 1X ONCE 12/14/20 13:00 12/14/20 13:59 DC 12/14/20 13:12 1,000 MLS/HR (ASHLYN CHAPARRO [employer]) Allergies: Allergies: Allergies Coded Allergies Type Severity Reaction Last Updated Verified No Known Drug Allergies 10/10/17 No (ASHLYN CHAPARRO [employer]) Physical Exam: PE: Constitutional: Well developed, well nourished, no acute distress, non-toxic appearance. [] HENT: Normocephalic, atraumatic, bilateral external ears normal, oropharynx moist, no oral exudates, nose normal. [] Eyes: PERRLA, EOMI, conjunctiva normal, no discharge. [] Neck: Normal range of motion, no tenderness, supple, no stridor. [] Cardiovascular:Heart rate regular rhythm, no murmur [] Lungs & Thorax: Bilateral breath sounds clear to auscultation [] Abdomen: Bowel sounds normal, soft, no right upper quadrant or right lower quadrant tenderness, slight left upper quadrant tenderness, mild left lower quadrant tenderness, no masses, no pulsatile masses. [] Skin: Warm, dry, no erythema, no rash. [] Back: No tenderness, no CVA tenderness. [] Extremities: No tenderness, no cyanosis, no clubbing, ROM intact, no edema. [] Neurologic: Alert and oriented X 3, normal motor function, normal sensory function, no focal deficits noted. [] Psychologic: Affect normal, judgement normal, mood normal. [] (ASHLYN CHAPARRO [employer]) Current Patient Data: Labs: Laboratory Tests Test 12/14/20 12:51 12/14/20 12:52 12/14/20 13:03 Urine Collection Type Unknown Urine Color Yellow Urine Clarity Clear Urine pH 5.5 (<5.0-8.0) Urine Specific Lily >=1.030 (1.000-1.030) Urine Protein Negative mg/dL (NEG-TRACE) Urine Glucose (UA) >=1000 mg/dL (NEG) Urine Ketones (Stick) 15 mg/dL (NEG) Urine Blood Negative (NEG) Urine Nitrite Positive (NEG) Urine Bilirubin Negative (NEG) Urine Urobilinogen Dipstick 0.2 mg/dL (0.2 mg/dL) Urine Leukocyte Esterase Negative (NEG) Urine RBC 0 /HPF (0-2) Urine WBC 5-10 /HPF (0-4) Urine Squamous Epithelial Cells Few /LPF Urine Bacteria Many /HPF (0-FEW) Urine Mucus Slight /LPF White Blood Count 10.0 x10^3/uL (4.0-11.0) Red Blood Count 4.64 x10^6/uL (3.50-5.40) Hemoglobin 13.4 g/dL (12.0-15.5) Hematocrit 38.7 % (36.0-47.0) Mean Corpuscular Volume 84 fL (79-100) Mean Corpuscular Hemoglobin 29 pg (25-35) Mean Corpuscular Hemoglobin Concent 35 g/dL (31-37) Red Cell Distribution Width 13.8 % (11.5-14.5) Platelet Count 183 x10^3/uL (140-400) Neutrophils (%) (Auto) 75 % (31-73) H Lymphocytes (%) (Auto) 18 % (24-48) L Monocytes (%) (Auto) 5 % (0-9) Eosinophils (%) (Auto) 2 % (0-3) Basophils (%) (Auto) 1 % (0-3) Neutrophils # (Auto) 7.5 x10^3/uL (1.8-7.7) Lymphocytes # (Auto) 1.8 x10^3/uL (1.0-4.8) Monocytes # (Auto) 0.5 x10^3/uL (0.0-1.1) Eosinophils # (Auto) 0.2 x10^3/uL (0.0-0.7) Basophils # (Auto) 0.1 x10^3/uL (0.0-0.2) Sodium Level 133 mmol/L (136-145) L Potassium Level 3.5 mmol/L (3.5-5.1) Chloride Level 99 mmol/L (98-107) Carbon Dioxide Level 24 mmol/L (21-32) Anion Gap 10 (6-14) Blood Urea Nitrogen 13 mg/dL (7-20) Creatinine 0.6 mg/dL (0.6-1.0) Estimated GFR (Cockcroft-Gault) 113.1 BUN/Creatinine Ratio 22 (6-20) H Glucose Level 254 mg/dL (70-99) H Calcium Level 8.3 mg/dL (8.5-10.1) L Total Bilirubin 0.5 mg/dL (0.2-1.0) Aspartate Amino Transferase (AST) 11 U/L (15-37) L Alanine Aminotransferase (ALT) 28 U/L (14-59) Alkaline Phosphatase 85 U/L (46-116) Total Protein 7.4 g/dL (6.4-8.2) Albumin 3.4 g/dL (3.4-5.0) Albumin/Globulin Ratio 0.9 (1.0-1.7) L Lipase 79 U/L (73-393) POC Urine HCG, Qualitative Hcg negative (Negative) Laboratory Tests 12/14/20 12:52 Laboratory Tests 12/14/20 12:52 Vital Signs: Vital Signs Date Time Temp Pulse Resp B/P (MAP) Pulse Ox O2 Delivery O2 Flow Rate FiO2 12/14/20 13:43 16 97 Room Air 12/14/20 12:35 98.1 96 165/92 (116) 98.1 (ASHLYN CHAPARRO APRN) EKG: EKG: [] (ASHLYN CHAPARRO APRN) Radiology/Procedures: Radiology/Procedures: []PROCEDURE: CT ABD PELV W/ IV CONTRST ONLY CT ABDOMEN+PELVIS W History: Reason: LLQ pain / Spl. Instructions: IV omni 300 75 mls / History: Technique: After the administration of intravenous contrast, CT imaging was p erformed of the abdomen and pelvis. Multiplanar images are reviewed. Exposure: One or more of the following individualized dose reduction techniques were utilized for this examination: 1. Automated exposure control 2. Adjustment of the mA and/or kV according to patient size 3. Use of iterative reconstruction technique. Comparison: March 12, 2019 Findings: Lower chest: No consolidation or pleural effusion. Abdomen and pelvis: Hepatic steatosis. Focal fatty sparing along the gallbladder fossa. The spleen, adrenal glands, and pancreas are unremarkable. Cholelithiasis. Small bilateral renal hypodensities, likely cysts. No hydronephrosis. No renal calculus. Sigmoid colonic wall thickening with inflamed diverticula and adjacent inflammatory changes. Additional colonic diverticulosis. No perforation. No abscess. Normal appendix. No evidence of bowel obstruction. No pathologic lym phadenopathy. No ascites. Left ovarian dominant follicle measures 2.5 cm. Bones: No pathologic osseous lesions. Impression: 1. Acute sigmoid diverticulitis. No perforation or abscess. 2. Cholelithiasis. 3. Hepatic steatosis. Electronically signed by: Servando Gutierrez DO (12/14/2020 2:34 PM) [id number] DICTATED and SIGNED BY: SERVANDO GUTIERREZ DO DATE: 12/14/20 [id number] (ASHLYN CHAPARRO APRN) Course & Med Decision Making: Course & Med Decision Making Pertinent Labs and Imaging studies reviewed. (See chart for details) This is a 35-year-old female patient presented to the ED today with left lower quadrant abdominal pain, symptoms began 3 days ago. Negative urine his CG, urine noted for UTI. CBC with a normal WBC, hemoglobin and hematocrit are normal. CMP with glucose of 254, anion gap is normal. Patient was given IV fluids, nausea medicine and pain medicine with good relief of her symptoms. CT of the abdomen and pelvic was noted for diverticulitis, cholelithiasis. She was started on Cipro and flagyl. Given GI as well as general surgery for follow-up. (ASHLYN CHAPARRO APRN) Course & Med Decision Making I oversaw on the above date of service of this patient. This patient was evaluated, examined, treated, and dispositioned from the emergency department by the mid-level practitioner. Although I was working at the time and available for consultation, no assistance was requested and I did not see or immediately direct the care of this patient. I reviewed note and agree to findings, plan of care, and disposition as stated. Electronically signed, Desmond Torres DO (DESMOND TORRES DO) Sin Disclaimer: Sin Disclaimer: This electronic medical record was generated, in whole or in part, using a voice recognition dictation system. (KRYSTAASHLYN De Santiago APRN) Departure Departure Impression: Primary Impression: Urinary tract infection Qualified Codes: N39.0 - Urinary tract infection, site not specified Additional Impressions: Cholelithiasis Qualified Codes: K80.80 - Other cholelithiasis without obstruction Diverticulitis Disposition: HOME / SELF CARE / HOMELESS Condition: STABLE Referrals: UNKNOWN PCP NAME (PCP) RAISA JOHSNON MD follow up in 1-2 weeks MARY MARINO MD follow up in one week Patient Instructions: Cholelithiasis, [id number], Diverticulitis, Urinary Tract Infection Additional Instructions: You were evaluated in the emergency room and noted to have diverticulitis which is inflammation of the colon. You also have urinary tract infection. Take the prescribed antibiotics as ordered until completed. You also have gallstones. This needs to be followed up with the provided general surgeon. Come back to the ED at any point symptoms worsen Scripts Metronidazole (FLAGYL) 500 Mg Tablet 500 MG PO TID, #30 TAB Prov: KRYSTAASHLYN Jonnathan HOPKINS 12/14/20 Ciprofloxacin Hcl (CIPRO) 500 Mg Tablet 1 TAB PO BID for 10 Days, #20 TAB 0 Refills Prov: THERESATitoASHLYN APRN 12/14/20 ASHLYN CHAPARRO APRN Dec 14, 2020 15:01 DESMOND TORRES DO Dec 14, 2020 15:46
== END 2020-12-14 15:28 | disposition home or self-care (01) ==
LOC: ER 11:30
DX: N39.0 Urinary tract infection, site not specified (principal); K80.80 Other cholelithiasis without obstruction; K57.92 Diverticulitis of intestine, part unspecified, without perforation or abscess without bleeding; E11.9 Type 2 diabetes mellitus without complications; I10 Essential (primary) hypertension; Z98.51 Tubal ligation status
CPT/HCPCS: 36415; 74177; 80053; 81001; 81025; 83690; 85025; 87086; 96361; 96374; 96375; 99285; J2405; J3010; J7030; Q9967